=== PATIENT | female | born 1935 | race Caucasian/White ===

== ENCOUNTER 2017-10-19 01:32 | Emergency (ER) | payer MEDICAID ==
[~2017-10-19] VITALS: Ht 160 cm; Wt 63.5 kg
[2017-10-19 01:40] VITALS: BP_SYST 159
--- NOTE | 2017-10-19 01:40 | NUR ---
Patient to ER bed 8 to gown for evaluation. Side rails up. Report given to Darren ROGER.
--- NOTE | 2017-10-19 01:42 | NUR ---
Patient AAOx4, ambulatory. Patient states having a main complaint of high blood pressure with headache and pain scale 4/10 since earlier today. Patietn states she took 25 mg losartan approximately 1 hour prior to ER visit. Patient denies chest pain, shortness of breath, visual difficulty, dizziness, and any other complaints.
--- NOTE | 2017-10-19 02:00 | NUR ---
LEANN Lopez at bedside examining patient.
[2017-10-19] MEDS ORDERED: NS 500 ML IV ONE (02:15)
[2017-10-19] MEDS ORDERED: KETOROLAC TROMETHAMINE 15 MG VIAL IVP ONE (02:15)
--- NOTE | 2017-10-19 02:17 | NUR ---
Patient refused IV insertion, IV fluids, and IV pain medication. Patient states the pain is tolerable and does not want pain medication at this time.
[2017-10-19 02:36] LABS: BASOPHILS # (AUTO) 0.1 K/uL (0.0-0.2); BASOPHILS % (AUTO) 1.6 % (0.0-2.0); EOSINOPHILS # (AUTO) 0.2 K/uL (0.0-0.4); HEMATOCRIT 34.4 % (36-48); HEMOGLOBIN 11.8 g/dL (12.0-16.0); LYMPHOCYTES # (AUTO) 2.3 K/uL (1.0-5.5); LYMPHOCYTES % (AUTO) 39.3 % (20.5-51.5); MEAN CORPUSCULAR HEMOGLOBIN 32 pg (27-31); MEAN CORPUSCULAR HGB CONC 34 % (32-36); MEAN CORPUSCULAR VOLUME 92 fL (79.0-98.0); MONOCYTES # (AUTO) 0.7 K/uL (0.0-1.0); MONOCYTES % (AUTO) 12.9 % (1.7-9.3); NEUTROPHILS # (AUTO) 2.5 K/uL (1.8-7.7); NEUTROPHILS % (AUTO) 42.2 % (40.0-70.0); PLATELET COUNT (AUTO) 187 K/uL (130-430); RED BLOOD CELL COUNT(AUTO) 3.75 MIL/uL (4.2-6.2); RED CELL DISTRIBUTION WIDTH 12.2 % (9.0-15.0); WHITE BLOOD COUNT (AUTO) 5.8 K/uL (4.8-10.8)
[2017-10-19 02:43] LABS: ANION GAP 6 (5-15); CALCIUM 8.6 mg/dL (8.4-11.0); CHLORIDE 104 mmol/L (98-107); CREATININE 1.24 mg/dL (0.55-1.30); GLUCOSE 99 mg/dL (70-99); POTASSIUM 4.2 mmol/L (3.5-5.1); SODIUM SERUM 136 mmol/L (136-145); UREA NITROGEN, BLOOD 34 mg/dL (8-21)
[2017-10-19 02:49] LABS: ALANINE AMINOTRANSFERASE 16 U/L (12-78); ALBUMIN 3.8 g/dL (3.4-4.8); ASPARTATE AMINOTRANSFERASE 20 U/L (10-37); TOTAL BILIRUBIN 0.3 mg/dL (0.0-1.0)
[2017-10-19 03:03] VITALS: BP_SYST 159
--- NOTE | 2017-10-19 03:03 | NUR ---
Patient given written and verbal discharge instructions and verbalizes understanding. ER MD DR. LY discussed with patient the results and treatment provided. Patient in stable condition. ID arm band removed. Patient educated on pain management and to follow up with PMD. Pain Scale 0/10. Opportunity for questions provided and answered. Medication side effect fact sheet provided.
== END 2017-10-19 03:03 | disposition home or self-care (01) ==
LOC: SED 01:32
DX: I10 Essential (primary) hypertension (principal); R51 Headache; K21.9 Gastro-esophageal reflux disease without esophagitis
CPT/HCPCS: 36415; 80053; 85025; 96374; 99284; J7030

== ENCOUNTER 2022-08-21 17:01 | Emergency (ER) | payer MEDICAID ==
[~2022-08-21] VITALS: Ht 154.9 cm; Wt 49.9 kg
[2022-08-21 17:31] VITALS: BP_SYST 125
--- NOTE | 2022-08-21 17:36 | NUR ---
Placed in room 3 . Placed on library monitor, blood pressure machine and pulse oximeter. To gown for exam. Side rails up. Report given to Rosa M.
[2022-08-21] MEDS ORDERED: ONDANSETRON 4 MG ODT TAB PO ONE (18:15)
[2022-08-21 18:37] LABS: BASOPHILS % (AUTO) 0.6 % (0.0-2.0); EOSINOPHILS # (AUTO) 0.1 K/uL (0.0-0.4); EOSINOPHILS % (AUTO) 0.9 % (0.0-4.0); HEMATOCRIT 35.1 % (36-48); HEMOGLOBIN 11.7 g/dL (12.0-16.0); LYMPHOCYTES % (AUTO) 14.9 % (20.5-51.5); MEAN CORPUSCULAR HEMOGLOBIN 31 pg (27-31); MEAN CORPUSCULAR HGB CONC 33 % (32-36); MEAN CORPUSCULAR VOLUME 92 fL (79.0-98.0); MONOCYTES # (AUTO) 0.5 K/uL (0.0-1.0); MONOCYTES % (AUTO) 6.8 % (1.7-9.3); NEUTROPHILS # (AUTO) 5.1 K/uL (1.8-7.7); NEUTROPHILS % (AUTO) 76.8 % (40.0-70.0); PLATELET COUNT (AUTO) 164 K/uL (130-430); RED BLOOD CELL COUNT(AUTO) 3.83 MIL/uL (4.2-6.2); RED CELL DISTRIBUTION WIDTH 13.4 % (9.0-15.0); WHITE BLOOD COUNT (AUTO) 6.6 K/uL (4.8-10.8)
[2022-08-21 18:47] LABS: ALANINE AMINOTRANSFERASE 15 U/L (12-78); ALBUMIN 3.8 g/dL (3.4-4.8); ANION GAP 9 (5-15); ASPARTATE AMINOTRANSFERASE 22 U/L (10-37); CALCIUM 8.8 mg/dL (8.4-11.0); CHLORIDE 105 mmol/L (98-107); CREATININE 1.42 mg/dL (0.55-1.30); GLUCOSE 97 mg/dL (70-99); TOTAL BILIRUBIN 0.4 mg/dL (0.0-1.0); UREA NITROGEN, BLOOD 31 mg/dL (8-21)
[2022-08-21] MEDS ORDERED: ONDA-8 TL (19:01)
[2022-08-21 19:57] VITALS: BP_SYST 141
--- NOTE | 2022-08-21 19:57 | NUR ---
Patient given written and verbal discharge instructions and verbalizes understanding. ER MD discussed with patient the results and treatment provided. Patient in stable condition. ID arm band removed. Rx of ZOFRAN given. Patient educated on pain management and to follow up with PMD. Pain Scale . Opportunity for questions provided and answered. Medication side effect fact sheet provided.
--- NOTE | 2022-08-21 19:59 | NUR ---
PATIENT REFUSED URINE.
== END 2022-08-21 19:59 | disposition home or self-care (01) ==
LOC: SED 17:01
DX: I10 Essential (primary) hypertension (principal); R42 Dizziness and giddiness; R11.2 Nausea with vomiting, unspecified; K21.9 Gastro-esophageal reflux disease without esophagitis; Z79.899 Other long term (current) drug therapy
CPT/HCPCS: 99285; 71045; 80053; 85025; 84484; 36415; 93005; 81002; Q0162